=== PATIENT | female | born 1975 | race Caucasian/White ===

== ENCOUNTER 2016-12-15 08:10 | Inpatient (IN) | payer BC, OTHER ==
[~2016-12-15] VITALS: Ht 172.7 cm; Wt 79.4 kg
--- NOTE | 2016-12-15 00:02 | NUR ---
PRN Motrin and Benadryl administration Pt c/o back pain 01/17 and inability to sleep. PRN Motrin and Benadryl administered. Addendum: 12/17/16 at 0017 by MEGHAN CHANEL RN Disregard note. Incorrect entry date.
--- NOTE | 2016-12-15 01:02 | NUR ---
PRN Motrin and Benadryl reassessment PRN Motrin somewhat effective. Pt reports low back pain level decreased to 4/10. PRN Benadryl not yet effective. Pt reports feeling tired but has not been able to fall asleep. Not further medications requested at this time. Addendum: 12/17/16 at 0017 by MEGHAN CHANEL RN Disregard note. Incorrect entry date.
[2016-12-15 09:30] VITALS: BP 128/62
--- NOTE | 2016-12-15 09:30 | NUR ---
PRE-ADMISSION NOTE: Received patient in Intake. Pt very drowsy and slurring her speech. B/P 128/62 P: 81 Pulse OX: 98% T: 98.2 Patient states she weighs 175 and is 5 feet 8 inches tall. NKA UDS and urine preg obtained. Substance use history was difficult to obtain due to slurred speech: Oxycodone 30mg every 6 hrs last use today 15mg Xanax 4mg/day X 4 years. Last use today 2mg
[2016-12-15] MEDS ORDERED: ONDANSETRON 4 MG/2 ML VIAL IM PRN (09:45)
[2016-12-15] MEDS ORDERED: DICYCLOMINE HCL 20 MG TABLET PO PRN (09:45)
[2016-12-15] MEDS ORDERED: ONDANSETRON ODT 4 MG TAB.RAPDIS SL PRN (09:45)
[2016-12-15] MEDS ORDERED: THIAMINE HCL 200 MG/2 ML VIAL IM ONE (09:45)
[2016-12-15] MEDS ORDERED: LORAZEPAM 2 MG/1 ML VIAL IM PRN (09:45)
[2016-12-15] MEDS ORDERED: LOPERAMIDE HCL 2 MG CAPSULE PO PRN ×2 (09:45)
[2016-12-15] MEDS ORDERED: ACETAMINOPHEN 325 MG TABLET PO PRN (09:45)
[2016-12-15] MEDS ORDERED: IBUPROFEN 400 MG TABLET PO PRN (09:45)
[2016-12-15] MEDS ORDERED: diphenhydrAMINE 50 MG CAPSULE PO PRN (09:45)
[2016-12-15] MEDS ORDERED: LORAZEPAM 1 MG TABLET PO PRN (09:45)
[2016-12-15] MEDS ORDERED: MAG HYDROX/AL HYDROX/SIMETH 30 ML LIQUID UDC PO PRN (09:45)
[2016-12-15] MEDS ORDERED: MIRALAX 17 GM POWD.PACK PO PRN (09:45)
[2016-12-15] MEDS ORDERED: MAGNESIUM HYDROXIDE 30 ML LIQUID UDC PO PRN (09:45)
--- NOTE | 2016-12-15 10:00 | NUR ---
Pt sleeping unable to do assessment at this time.
[2016-12-15 10:04] LABS: *URINE HCG, QUAL NEGATIVE (NEGATIVE)
[2016-12-15 10:15] LABS: *AMPHETAMINE, URINE NEGATIVE (NEGATIVE); *BARBITURATE, URINE NEGATIVE (NEGATIVE); *CANNABINOID, URINE NEGATIVE (NEGATIVE); *COCCAINE, URINE NEGATIVE (NEGATIVE); *OPIATE, URINE NEGATIVE (NEGATIVE); *PHENCYCLIDINE SCREEN,URINE NEGATIVE (NEGATIVE)
[2016-12-15] MEDS ORDERED: CITA20TA19 PO (10:17)
[2016-12-15 10:57] LABS: ETHANOL < 3 MG/DL (0-0)
[2016-12-15 11:00] LABS: BASOPHILS % (AUTO) 0.3 % (0.0-2.0); EOSINOPHILS % (AUTO) 0.3 % (0.0-7.0); HEMATOCRIT 38.6 % (37-47); HEMOGLOBIN 13.1 G/DL (12.0-16.0); LYMPHOCYTES # (AUTO) 1.3 K/uL (20.0-40.0); LYMPHOCYTES % (AUTO) 25.2 % (20.5-51.5); MEAN CORPUSCULAR HEMOGLOBIN 33.7 UUG (27.0-31.0); MEAN CORPUSCULAR HGB CONC 34 g/dL (32.0-37.0); MEAN CORPUSCULAR VOLUME 99.2 FL (81.0-99.0); MONOCYTES # (AUTO) 0.3 K/uL (2.0-10.0); MONOCYTES % (AUTO) 6.1 % (0.0-11.0); NEUTROPHILS # (AUTO) 3.6 K/uL (1.8-8.9); NEUTROPHILS % (AUTO) 68.1 % (38.5-71.5); PLATELET COUNT (AUTO) 219 K/UL (150-450); RED BLOOD CELL COUNT(AUTO) 3.89 MIL/UL (4.2-5.4); RED CELL DISTRIBUTION WIDTH 13.5 % (11.5-14.5); WHITE BLOOD COUNT (AUTO) 5.2 K/UL (4.0-11.2)
[2016-12-15 11:03] LABS: ALANINE AMINOTRANSFERASE 60 U/L (14-59); ALBUMIN 4.1 g/dL (3.4-5.0); ALKALINE PHOSPHATASE 57 U/L (50-136); AMYLASE 40 U/L (25-115); ASPARTATE AMINOTRANSFERASE 62 U/L (15-37); BILIRUBIN,TOTAL 0.5 mg/dL (0.2-1.0); CALCIUM 8.8 mg/dL (8.5-10.1); CARBON DIOXIDE 31 mmol/L (21-32); CHLORIDE 103 mmol/L (98-107); CREATININE 0.7 mg/dL (0.6-1.3); GFR 93 mL/min (>60); GLUCOSE 161 mg/dL (74-106); LIPASE 217 U/L (73-393); MAGNESIUM 2.2 mg/dL (1.8-2.4); POTASSIUM 3.6 mmol/L (3.5-5.1); SODIUM SERUM 141 mmol/L (136-145); TOTAL PROTEIN, SERUM 7.7 g/dL (6.4-8.2); UREA NITROGEN, BLOOD 8 mg/dL (7-18)
[2016-12-15 11:14] LABS: THYROID STIMULATING HORMONE 0.658 mIU/mL (0.358-3.740)
[2016-12-15 11:27] LABS: HIV-1 p24 ANTIGEN NON REACTIVE (NONREACTIVE); HIV-1/2 ANTIBODY NON REACTIVE (NONREACTIVE)
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
[2016-12-15 13:07] VITALS: BP 106/61
[2016-12-15] MEDS: LORAZEPAM 1 MG TABLET PO PRN (13:29)
[2016-12-15] MEDS: BUPRENORPHINE HCL 2 MG TAB.SUBL SL PRN (13:30)
--- NOTE | 2016-12-15 13:30 | NUR ---
Pt awake and states she "feels sick" CIWA 13 COWS 12 Pt c/o severe body aches, chills, nausea fine tremors and anxiety. Ativan 1mg po prn and Subutex 4mg sl prn administered. Also c/o nausea. Zofran 4mg sl administered
--- NOTE | 2016-12-15 14:30 | NUR ---
Pt feels improved after Subutex and Ativan prn. Repeat SUSANNE 7 COWS 9 Addendum: 12/15/16 at 1614 by ROWAN GUARDADO RN Also states nausea gone after Zofran prn
[2016-12-15] MEDS: LORAZEPAM 1 MG TABLET PO SCH ×2 (16:54→21:28)
[2016-12-15] MEDS: BUPRENORPHINE HCL 2 MG TAB.SUBL SL SCH ×2 (16:54→21:28)
--- NOTE | 2016-12-15 16:58 | NUR ---
VSS CIWA 13 COWS 14 c/o chills, shaking, body aches Pt started on 5 day Ativan and 5 day Subutex tapers.
[2016-12-15 18:12] VITALS: BP 111/72
--- NOTE | 2016-12-15 18:48 | NUR ---
END OF SHIFT NOTE: Report given to weight shifter nurse. 41 yo female admitted to [facility] today for opiate and benzo dependence. Pt started on a 5 day Ativan and 5 day Subutex tapers. Pt is presently awake, alert and oriented X4. Color good, skin warm and dry. Respirations even and unlabored. Pt received Zofran 4mg sl prn @ 1345 and Ativan 2mg po prn and Subutex 4mg sl prn @ 1330 before taper started. Last CIWA 13 COWS 14 @ 1700. Safety precautions observed. Call light within reach.
--- NOTE | 2016-12-15 19:45 | NUR ---
START OF SHIFT 323 Received report from day shift nurse. Pt is lying in bed resting. She is a 41 yo female admitted to [facility] today for opiate and BZD dependence. She is A&O x4 and ambulatory. NKA, full code status, and on a regular diet. She has a PMH of anxiety and depression. On admission she admitted to using oxycodone 6 of 30mg tabs per day for 7 years and Xanax 4-6mg per day for 7 years. She started modified Ativan and Subutex tapers today. Upon entering her room the pt is tearful and appears anxious. She states that she feels ashamed that she has ended up here. Provided support and encouragement. She reports back pain, leg aches, chills, and anxiety. She is noted with a flushed face, mild tremors, and goose bumps. Tapers due tonight. Fall and seizure precautions in place.
[2016-12-15 20:00] VITALS: BP 121/64
[2016-12-15] MEDS: METHOCARBAMOL 750 MG TABLET PO PRN (21:29)
--- NOTE | 2016-12-15 21:30 | NUR ---
PRN Robaxin administration Pt c/o generalized body aches and back pain 01/17. PRN Robaxin administered.
--- NOTE | 2016-12-15 22:30 | NUR ---
PRN Robaxin reassessment PRN Robaxin effective. Pt's pain level reduced to 2/10
[2016-12-16] VITALS (8 sets, daily range): BP systolic 105–127; BP diastolic 53–69
[2016-12-16] MEDS: IBUPROFEN 600 MG TABLET PO PRN (00:01)
--- NOTE | 2016-12-16 00:02 | NUR ---
PRN Motrin and Benadryl administration Pt c/o back pain 6/10 and inability to sleep. PRN Motrin and Benadryl administered.
--- NOTE | 2016-12-16 01:02 | NUR ---
PRN Motrin and Benadryl reassessment PRN Motrin somewhat effective. Pt reports low back pain level decreased to 4/10. PRN Benadryl not yet effective. Pt reports feeling tired but has not been able to fall asleep. Not further medications requested at this time.
[2016-12-16] MEDS: LORAZEPAM 1 MG TABLET PO PRN (02:21)
[2016-12-16] MEDS: BUPRENORPHINE HCL 2 MG TAB.SUBL SL PRN (02:22)
--- NOTE | 2016-12-16 02:22 | NUR ---
PRN Subutex and Ativan administration Pt reports back pain level increased to 6/10 and she has generalized body aches with chills, flushing, anxiety, irritability, and mild hand tremors. She has not been able to relax and fall asleep. COWS score 12 and CIWA 6. PRN Subutex and Ativan administered.
--- NOTE | 2016-12-16 03:22 | NUR ---
PRN Subutex and Ativan reassessment PRN Subutex and Ativan effective. Pt is lying comfortably in bed resting with eyes closed. Respirations even and unlabored.
--- NOTE | 2016-12-16 07:15 | NUR ---
END OF SHIFT Report provided to day shift nurse. Pt is lying in bed resting. She is a 41 yo female admitted to [facility] today for opiate and BZD dependence. She is A&O x4 and ambulatory. NKA, full code status, and on a regular diet. She has a PMH of anxiety and depression. On admission she admitted to using oxycodone 6 of 30mg tabs per day for 7 years and Xanax 4-6mg per day for 7 years. She started a 5 day Ativan and Subutex taper on 12/15. Several PRNs administered for the management of withdrawal symptoms. She received PRN Robaxin, Benadryl, Motrin, Subutex, and Ativan. Last COWS 2 and CIWA 2. She drank 1000mL and slept 4 hours. Fall and seizure precautions in place. Bed is down with call light in reach.
--- NOTE | 2016-12-16 07:16 | NUR ---
Start of Shift Notes: Received patient in her room. Alert and oriented x 4. Verbally responsive. Able to make needs known. Respirations even and unlabored. No SOB noted. Skin warm and dry to touch. Abdomen soft and non-distended. Bowel sounds present in all 4 quadrants. No complains N/V/D or abdominal pain noted. No complains of diarrhea or constipation. Voids independently. Ambulatory ad wayne with steady gait. Voids independently No complains of dysuria. Patient is a 41 year female admitted for opiate and BZO dependence who was placed on a 5-day Ativan and 5-day Subutex taper as ordered. No adverse reactions noted. Has past medical hx of anxiety, depression and chronic back pain. FULL CODE. Regular diet. NKA. On fall and seizure precaution. Educated patient on her current plan of care and her medication regimen. Patient verbalized good understanding. Encouraged oral fluid intake and encouraged group participation to learn new skills to prevent relapse. Will continue to monitor closely.
[2016-12-16] MEDS ORDERED: TUBERCULIN,PURIF.PROT.DERIV. 5 TU/0.1 ML TEST ID ONE (09:00)
[2016-12-16] MEDS: MULTIVITAMINS,THERAPEUTIC TABLET PO SCH (09:06)
[2016-12-16] MEDS: LORAZEPAM 1 MG TABLET PO SCH ×4 (09:06→21:02)
[2016-12-16] MEDS: CLONIDINE HCL 0.1 MG TABLET PO PRN ×2 (09:06→23:40)
[2016-12-16] MEDS: THIAMINE HCL 100 MG TABLET PO SCH (09:06)
[2016-12-16] MEDS: BUPRENORPHINE HCL 2 MG TAB.SUBL SL SCH ×4 (09:06→21:02)
[2016-12-16] MEDS: METHOCARBAMOL 750 MG TABLET PO PRN ×2 (09:06→21:02)
[2016-12-16] MEDS: FOLIC ACID 1 MG TABLET PO SCH (09:06)
--- NOTE | 2016-12-16 09:06 | NUR ---
Clonidine 0.1mg PO/Robaxin 750mg PO given: Patient noted with complain of chills, anxiety, hot flashes, mild sweating and 5/10 generalized muscle aches related to withdrawal symptoms. COWS 8/CIWA 5. Medicated patient with Clonidine 0.1mg PO, and Robaxin 750 mg PO as ordered. Will monitor for effectiveness.
--- NOTE | 2016-12-16 10:06 | NUR ---
Re-assessment: Per patient, PRN Clonidine and Robaxin were effective in reducing anxiety, agitation, chills, muscle aches and pain. PL 2/10.
--- NOTE | 2016-12-16 11:11 | NUR ---
Psych MD Communication: Patient was using Celexa 20 mg PO at home. Order obtained from MD Roberts to start patient on Celexa 20 mg PO daily with first dose now. MD is driving and unable to enter orders at this time. +
[2016-12-16] MEDS: CITALOPRAM 20 MG TABLET PO SCH (12:07)
[2016-12-16 16:08] LABS: HCV AB <0.1 s/co ratio (0.0-0.9); HEPATITIS B CORE AB, IgM Negative (Negative); HEPATITIS B SURFACE AG Negative (Negative)
[2016-12-16] MEDS ORDERED: TRAZODONE 50 MG TABLET PO PRN (18:30)
--- NOTE | 2016-12-16 18:58 | NUR ---
End of Shift Notes: Miquel is a 41 year old female admitted for opiate and BZO dependence who was placed on a 5-day Ativan and 5-day Subutex taper as ordered. No adverse reactions noted. Prior to admission, patient was using 180 mg of Oxycodone and 4-6mg of Xanax x 7 years. VS monitored closely. No significant abnormalities noted. Withdrawal symptoms were closely monitored. Patient presented with chills, hot flashes, anxiety, agitation, chills, muscle aches and pains and pupil dilation. COWS 8/CIWA 5. Medicated patient with Clonidine and Robaxin at 0906 with help after 1 hour. Last COWS 6/CIWA 4. Participated in group despite her withdrawal symptoms. Oral fluids encouraged. All needs met and attended. Will continue to monitor closely.
--- NOTE | 2016-12-16 20:00 | NUR ---
START OF SHIFT Received report from day shift nurse. Pt attended a group meeting and returned to her room after. She is a 41 yo female admitted to [facility] on 12/15 for opiate and BZD dependence. She is A&O x4 and ambulatory. NKA, full code status, and on a regular diet. She has a PMH of anxiety and depression. On admission she admitted to using oxycodone 6 of 30mg tabs per day for 7 years and Xanax 4-6mg per day for 7 years. She started modified Ativan and Subutex tapers on 12/15. Pt presents with back pain, hot and cold flashes, flushed face, flat affect, and anxiety. Tapers due tonight. She is cooperative with treatment. Fall and seizure precautions in place. Fall and seizure precautions in place. Bed is down with call light in reach.
--- NOTE | 2016-12-16 21:05 | NUR ---
PRN Robaxin, Milk of Magnesia, and Trazodone Pt reports back ache 6/10, no BM since prior to admission, and inability to sleep. PRN Robaxin, Milk of Magnesia, and Trazodone administered.
--- NOTE | 2016-12-16 22:05 | NUR ---
JOSH Marte, MOM, and Trazodone reassessment Pt reports that back pain is "tolerable". She has not yet had a bowel movement or been able to sleep. She reports she will continue to lie in bed and try to sleep.
[2016-12-16] MEDS: HYDROXYZINE PAMOATE 25 MG CAPSULE PO PRN (23:41)
--- NOTE | 2016-12-16 23:42 | NUR ---
PRN Clonidine and Vistaril administration Pt reports hot and cold flashes, anxiety, and inability to relax and fall asleep. PRN Clonidine and Vistaril administered.
[2016-12-17] VITALS (7 sets, daily range): BP systolic 96–123; BP diastolic 59–79
--- NOTE | 2016-12-17 00:42 | NUR ---
PRN Clonidine and Vistaril reassessment PRN Clonidine and Vistaril effective. Pt is lying comfortably in bed resting with eyes closed. Respirations even and unlabored. Safety measures in place.
--- NOTE | 2016-12-17 07:20 | NUR ---
END OF SHIFT Report provided to day shift nurse. Pt is lying in bed resting. She is a 41 yo female admitted to [facility] today for opiate and BZD dependence. She is A&O x4 and ambulatory. NKA, full code status, and on a regular diet. She has a PMH of anxiety and depression. On admission she admitted to using oxycodone 6 of 30mg tabs per day for 7 years and Xanax 4-6mg per day for 7 years. She started modified Ativan and Subutex tapers on 12/15. Last COWS 2 and CIWA 2. PRN Trazodone, Robaxin, MOM, Clonidine, and Vistaril administered. She drank 1855mL and slept for 5 hours. Pt is compliant with treatment. Safety measures in place.
--- NOTE | 2016-12-17 07:33 | NUR ---
START OF SHIFT Received report from shift production associate nurse. 41 year old female patient admitted on 12/15/16 for opiate and benzo dependence. Pt is placed on a modified 5 day Subutex and Ativan taper and is tolerating well. Reports hx of anxiety, depression, and chronic back pain. PRN Trazodone, Robaxin, Motrin, Clonidine and Vistaril were administered, pt slept for 5 hours. Pt is A/O x4 and compliant with MD orders and treatment plan. S/S of withdrawal are being well managed with ordered medications. V/S remain WNL. Most recent COWS are 2, CIWA is 2. Pt remains safe and stable throughout night. All needs met. Will continue to monitor.
[2016-12-17 08:00] LABS: BASOPHILS % (AUTO) 0.2 % (0.0-2.0); EOSINOPHILS # (AUTO) 0.1 K/uL (0.0-0.7); EOSINOPHILS % (AUTO) 1.4 % (0.0-7.0); HEMATOCRIT 37.4 % (37-47); HEMOGLOBIN 12.8 G/DL (12.0-16.0); LYMPHOCYTES # (AUTO) 2.1 K/UL (0.8-4.8); LYMPHOCYTES % (AUTO) 48.3 % (20.5-51.5); MEAN CORPUSCULAR HEMOGLOBIN 34.1 UUG (27.0-31.0); MEAN CORPUSCULAR HGB CONC 34 g/dL (32.0-37.0); MEAN CORPUSCULAR VOLUME 99.8 FL (81.0-99.0); MONOCYTES # (AUTO) 0.3 K/UL (0.1-1.30); MONOCYTES % (AUTO) 6.6 % (0.0-11.0); NEUTROPHILS # (AUTO) 1.9 K/UL (1.8-8.9); NEUTROPHILS % (AUTO) 43.5 % (38.5-71.5); PLATELET COUNT (AUTO) 180 K/UL (150-450); RED BLOOD CELL COUNT(AUTO) 3.75 MIL/UL (4.2-5.4); RED CELL DISTRIBUTION WIDTH 13.1 % (11.5-14.5); WHITE BLOOD COUNT (AUTO) 4.4 K/UL (4.0-11.2)
[2016-12-17 08:17] LABS: ALBUMIN 3.4 g/dL (3.4-5.0); BILIRUBIN,DIRECT 0.1 mg/dL (0.0-0.2); BILIRUBIN,TOTAL 0.2 mg/dL (0.2-1.0); CALCIUM 8.3 mg/dL (8.5-10.1); CREATININE 0.7 mg/dL (0.6-1.3); MAGNESIUM 2.5 mg/dL (1.8-2.4); POTASSIUM 4.4 mmol/L (3.5-5.1); TOTAL PROTEIN, SERUM 6.7 g/dL (6.4-8.2)
[2016-12-17] MEDS: CITALOPRAM 20 MG TABLET PO SCH (08:23)
[2016-12-17] MEDS: METHOCARBAMOL 750 MG TABLET PO PRN ×2 (08:23→20:44)
[2016-12-17] MEDS: THIAMINE HCL 100 MG TABLET PO SCH (08:23)
[2016-12-17] MEDS: FOLIC ACID 1 MG TABLET PO SCH (08:23)
[2016-12-17] MEDS: LORAZEPAM 1 MG TABLET PO SCH ×3 (08:23→20:45)
[2016-12-17] MEDS: BUPRENORPHINE HCL 2 MG TAB.SUBL SL SCH ×3 (08:24→20:43)
[2016-12-17] MEDS: MULTIVITAMINS,THERAPEUTIC TABLET PO SCH (08:24)
--- NOTE | 2016-12-17 08:25 | NUR ---
PRN ROBAXIN Pt c/o generalized body aches 5/10 r/t withdrawals. PRN Robaxin administered as ordered. Education provided, will reassess.
--- NOTE | 2016-12-17 09:30 | NUR ---
REASSESSMENT Pt denies pain at this time and reports medication was effective.
[2016-12-17] MEDS: DICYCLOMINE HCL 20 MG TABLET PO SCH ×2 (15:00→20:44)
--- NOTE | 2016-12-17 19:22 | NUR ---
END OF SHIFT Endorsed to bindery manager nurse. 41 year old female patient admitted on 12/15/16 for opiate and benzo dependence. Pt is placed on a modified 5 day Subutex and Ativan taper and is tolerating well. Reports hx of anxiety, depression, and chronic back pain. PRN Robaxin administered as ordered and effective. Pt is A/O x4 and compliant with MD orders and treatment plan. S/S of withdrawal are being well managed with ordered medications. Pt reports having a BM x1. Pt has adequate caloric intake. V/S remain WNL. Most recent COWS are 6 CIWA is 6. Pt remains safe and stable throughout night. All needs met. Pt encouraged to attend group and is seen socializing with peers. Night nurse will continue to monitor.
--- NOTE | 2016-12-17 20:00 | NUR ---
Start of Shift Note: Report received from day shift nurse. Pt is a 41 yo female admitted om 12/15/16 for medically-supervised withdrawal from opiates and benzodiazepines. Pt reports using 30mg oxycodone and 4-6mg Xanax daily for 7 years. Pt is on day 3 of a 5-day Subutex and Ativan tapers. Pt received with last COWS=6, CIWA=6, and PRN Robaxin was given during day shift. Pt reports NKDA/NKFA and is on a regular diet. Pt reports PMHx: anxiety, depression, and chronic back pain. Pt received in room, noted to be labile, and reports anxiety, diaphoresis, chills, and generalized pain. Bed is in low position and locked, side rails up x2, call light within reach. Will continue to monitor.
[2016-12-17] MEDS: TRAZODONE 50 MG TABLET PO PRN (20:44)
--- NOTE | 2016-12-17 20:44 | NUR ---
PRN Robaxin and PRN Trazodone: Patient complains of myalgia in lower back. Patient rates pain 5/10. Non-pharmacological measures not effective. Administered PRN Robaxin as ordered. Patient complains of inability to sleep. Non-pharmacological measures not effective. Administered PRN Trazodone as ordered. Will continue to monitor.
--- NOTE | 2016-12-17 21:45 | NUR ---
PRN Reassessment: Patient reports decreased myalgia in back with PRN Robaxin administration. Pain decreased from 5/10 to 2/10 and is at an acceptable level.
[2016-12-18] VITALS: BP 115/59
[2016-12-18 04:00] VITALS: BP 98/53
--- NOTE | 2016-12-18 04:00 | NUR ---
COWS/CIWA Deferred: Ordered 04:00 COWS and CIWA assessments are deferred for sleep. V/S stable. All safety precautions are in place. Will continue to monitor. Addendum: 12/18/16 at 0414 by TONIA JAMESON RN Amended: Links added.
--- NOTE | 2016-12-18 07:04 | NUR ---
End of Shift Note: Pt is a 41 yo female admitted to [facility] on 12/15/16 for medically-supervised withdrawal from opiates and benzodiazepines. Pt reports PMHx: anxiety, depression, and chronic back pain. . Pt reports NKDA/NKFA. Pt is on a regular diet. Pt reports taking up to 180mg oxycodone and 4-6mg Xanax daily for 7 years. Pt is to start day 4 of 5-day Subutex and Ativan tapers. Scheduled medication regime effectively managed s/s of withdrawal this shift, in addition to PRN Robaxin for myalgia, which was effective. Last COWS=4, CIWA=4 at 00:00. PRN Trazodone was given for inability to sleep, which was effective and pt slept 7 hours. V/S stable throughout shift, with decreased BP of 98/53 at 04:00. Total fluid intake this shift: 950 ml; output: urine x 2 and BM x 0. Pt is currently in bed, all needs have been attended and met. Pt endorsed to day shift nurse.
[2016-12-18 08:00] VITALS: BP 102/58
[2016-12-18] MEDS: LORAZEPAM 1 MG TABLET PO SCH ×4 (08:55→21:09)
[2016-12-18] MEDS: MULTIVITAMINS,THERAPEUTIC TABLET PO SCH (08:55)
[2016-12-18] MEDS: FOLIC ACID 1 MG TABLET PO SCH (08:55)
[2016-12-18] MEDS: THIAMINE HCL 100 MG TABLET PO SCH (08:55)
[2016-12-18] MEDS: DICYCLOMINE HCL 20 MG TABLET PO SCH ×3 (08:55→21:08)
[2016-12-18] MEDS: CITALOPRAM 20 MG TABLET PO SCH (08:55)
[2016-12-18] MEDS ORDERED: BUPRENORPHINE HCL 2 MG TAB.SUBL SL SCH (09:00)
[2016-12-18 12:00] VITALS: BP 96/62
[2016-12-18] MEDS: DOCUSATE SODIUM 250 MG CAPSULE PO SCH (12:35)
[2016-12-18] MEDS ORDERED: BISACODYL 5 MG TABLET.DR PO PRN (13:00)
[2016-12-18] MEDS ORDERED: MAGNESIUM CITRATE 296 ML BOTTLE PO PRN (13:00)
--- NOTE | 2016-12-18 14:00 | NUR ---
Mid Shift Notes: COWS 3/CIWA 3. Patient is in bed, resting. In no acute distress.
[2016-12-18] MEDS: GABAPENTIN 300 MG CAPSULE PO SCH ×2 (14:43→21:09)
[2016-12-18] MEDS: BUPRENORPHINE HCL 2 MG TAB.SUBL SL SCH ×2 (14:43→21:10)
[2016-12-18 16:00] VITALS: BP 94/50
--- NOTE | 2016-12-18 18:50 | NUR ---
End of Shift Notes: Patient is a 41 year old female admitted for opiate and BZO dependence who was placed on a 5-day Ativan and 5-day Subutex taper as ordered. No adverse reactions noted. Prior to admission, patient was using 180 mg of Oxycodone and 4-6mg of Xanax x 7 years. VS monitored closely. No significant abnormalities noted. Withdrawal symptoms were closely monitored. Patient presented with fatigue, anxiety, chills and muscle aches. Initial COWS 5/CIWA 3. Last COWS 3/CIWA 2. Patient was unable to participate in group due to her withdrawal symptoms and complains of fatigue. Oral fluids encouraged. All needs met and attended. Will continue to monitor closely.
[2016-12-18 20:00] VITALS: BP 118/66
--- NOTE | 2016-12-18 20:00 | NUR ---
Start of Shift Note: Report received from day shift nurse. Pt is a 41 yo female admitted for medically-supervised withdrawal from opiates and benzodiazepines. Pt reports using 30mg oxycodone and 4-6mg Xanax daily for 7 years. Pt is on day 4 of a 5-day Subutex and Ativan tapers. Pt received with last COWS=3, CIWA=2. Pt reports NKDA/NKFA. Pt is on a regular diet. Pt reports PMHx: anxiety, depression, and chronic back pain. Pt received in room, and reports anxiety, agitation, restlessness, tremor, and generalized pain. Bed is in low position and locked, side rails up x2, call light within reach. Will continue to monitor.
[2016-12-18] MEDS: HYDROXYZINE PAMOATE 25 MG CAPSULE PO PRN (21:08)
[2016-12-18] MEDS: TRAZODONE 50 MG TABLET PO PRN (21:08)
[2016-12-18] MEDS: CLONIDINE HCL 0.1 MG TABLET PO PRN (21:09)
--- NOTE | 2016-12-18 21:09 | NUR ---
PRN's Clonidine, Trazodone, Robaxin, Vistaril: Patient complains of anxiety, agitation, diaphoresis, myalgia in lower back with 5/10 pain, and inability to sleep. Administered PRN Clonidine for anxiety/agitation/diaphoresis, PRN Vistaril for anxiety, PRN Robaxin for myalgia, and PRN Trazodone for inability to sleep as ordered. Will continue to monitor.
[2016-12-18] MEDS: METHOCARBAMOL 750 MG TABLET PO PRN (21:10)
--- NOTE | 2016-12-18 22:10 | NUR ---
PRN Reassessment: Patient is in bed with eyes closed. Respirations are even and unlabored. No s/s of acute distress noted. PRN's Clonidine, Vistaril, Robaxin, and Trazodone effective as evidenced by patient's ability to rest. Will continue to monitor.
[2016-12-19] VITALS: BP 93/46
[2016-12-19] MEDS: HYDROXYZINE PAMOATE 25 MG CAPSULE PO PRN ×2 (03:39→22:09)
--- NOTE | 2016-12-19 03:39 | NUR ---
PRN Vistaril: Patient complains of increased anxiety. Administered PRN Vistaril as ordered. Will continue to monitor.
[2016-12-19 04:00] VITALS: BP 99/55
--- NOTE | 2016-12-19 04:40 | NUR ---
PRN Reassessment: Patient is in bed with eyes closed. Respirations are even and unlabored. No s/s of acute distress noted. PRN Vistaril effective. Will continue to monitor.
--- NOTE | 2016-12-19 07:18 | NUR ---
End of Shift Note: Pt is a 41 yo female admitted on 12/15/16 for medically-supervised withdrawal from benzodiazepines and opiates. Pt reports PMHx: chronic back pain from injury and scoliosis, anxiety, and depression. Pt reports NKDA/NKFA and is on a regular diet. Pt reports taking up to 180mg oxycodone and 4-6mg Xanax daily for 7 years. Pt is to start day 5 of 5-day Subutex and Ativan tapers. Scheduled medication regime managed s/s of withdrawal this shift, in addition to PRN Robaxin for myalgia, PRN Clonidine for diaphoresis/anxiety, and PRN Vistaril x2 for anxiety. Last COWS=6, CIWA=4 at 04:00. PRN Trazodone was given for inability to sleep, which was not effective as pt slept only 4 hours; endorsed new sleeping medication to day shift nurse. V/S stable throughout shift, with decreased BP of 99/55 at 04:00 and elevated HR of 104 at 20:00. Total fluid intake this shift: 1155 ml; output: urine x 2 and BM x 0. Pt is currently in bed, all needs have been attended and met. Pt endorsed to day shift nurse.
[2016-12-19 08:00] VITALS: BP 100/68
[2016-12-19] MEDS: FOLIC ACID 1 MG TABLET PO SCH (08:26)
[2016-12-19] MEDS: DICYCLOMINE HCL 20 MG TABLET PO SCH ×3 (08:26→22:09)
[2016-12-19] MEDS: DOCUSATE SODIUM 250 MG CAPSULE PO SCH (08:26)
[2016-12-19] MEDS: BUPRENORPHINE HCL 2 MG TAB.SUBL SL SCH ×3 (08:26→22:10)
[2016-12-19] MEDS: MULTIVITAMINS,THERAPEUTIC TABLET PO SCH (08:26)
[2016-12-19] MEDS: THIAMINE HCL 100 MG TABLET PO SCH (08:26)
[2016-12-19] MEDS: LORAZEPAM 1 MG TABLET PO SCH ×3 (08:26→22:09)
[2016-12-19] MEDS: GABAPENTIN 300 MG CAPSULE PO SCH ×2 (08:26→14:37)
[2016-12-19] MEDS: CITALOPRAM 20 MG TABLET PO SCH (08:27)
--- NOTE | 2016-12-19 12:49 | NUR ---
Transfer of care: Endorsed patient to receiving nurse. Patient is a 41 year old female admitted for opiate and BZO dependence who was placed on a 5-day Ativan and 5-day Subutex taper as ordered. No adverse reactions noted. Prior to admission, patient was using 180 mg of Oxycodone and 4-6mg of Xanax x 7 years. VS monitored closely. No significant abnormalities noted. Withdrawal symptoms were closely monitored. Patient presented with fatigue, and muscle aches. Initial COWS 2/CIWA 2. Last COWS 2/CIWA 2. Patient was unable to participate in group due to and complains of fatigue. Oral fluids encouraged. All needs met and attended. Will continue to monitor closely.
--- NOTE | 2016-12-19 12:50 | NUR ---
received pt from day shift nurse Elena Kim, pt is in stable condition at this time.
[2016-12-19 14:06] VITALS: BP 118/63
[2016-12-19] MEDS: METHOCARBAMOL 750 MG TABLET PO PRN (14:37)
--- NOTE | 2016-12-19 14:37 | NUR ---
PRN robaxin was administered for back pain. 03/19. will re-assess pt for any changes and effectiveness of medication
--- NOTE | 2016-12-19 15:00 | NUR ---
PRN REASSESSMENT: PT STATES ROBAXIN IS EFFECTIVE, PAIN LEVEL 3/10. PT STATES PAIN IS BETTER BUT PAIN WILL ALWAYS BE THERE. IT IS TOLERABLE AT THIS TIME
[2016-12-19 17:37] VITALS: BP 106/68
--- NOTE | 2016-12-19 18:51 | NUR ---
END OF SHIFT NOTE: PT IS IN STABLE CONDITION AT THIS TIME NO S/S OF DISCOMFORT, PT HAS CHRONIC PAIN, BUT VERBALIZES IT IS TOLERABLE AT THIS TIME. PT IS ADMITTED TO [facility] FOR OPIATE/BENZO WITHDRAWAL/DEPENDENCE. PTS LAST COWS 8 AND CIWA 6. PT JOINED GROUPS AND ACTIVITIES THROUGHOUT THE SHIFT.
[2016-12-19 20:00] VITALS: BP 100/64
--- NOTE | 2016-12-19 20:00 | NUR ---
Start of Shift Note: Report received from day shift nurse. Pt is a 41 yo female admitted for medically-supervised withdrawal from opiates and benzos. Pt reports using oxycodone 30mg/day and Xanax 4-6mg/day for 7 years. Pt continues on 5-day Subutex and Ativan tapers, three doses each remaining. Pt received with last COWS=2, CIWA=2, and PRN Robaxin was given during day shift. Pt reports NKDA/NKFA and is on a regular diet. Pt reports PMHx: anxiety, depression, and chronic back pain d/t injury and scoliosis. Pt received in room, and reports anxiety, restlessness, tremor. Bed is in low position and locked, side rails up x2, call light within reach. Will continue to monitor.
--- NOTE | 2016-12-19 20:00 | NUR ---
21:00 Meds Late: 21:00 scheduled medications administered late d/t patient attending comedy show and then off the unit on smoking patio. Medications administered at 22:10.
[2016-12-19] MEDS ORDERED: GABAPENTIN 300 MG CAPSULE PO SCH (21:00)
[2016-12-19] MEDS: CLONIDINE HCL 0.1 MG TABLET PO PRN (22:10)
[2016-12-19] MEDS: TRAZODONE 50 MG TABLET PO PRN (22:10)
--- NOTE | 2016-12-19 22:10 | NUR ---
PRN Clonidine, PRN Vistaril, and PRN Trazodone Patient complains of diaphoresis, anxiety, and inability to sleep. Non-pharmacological measures not effective. Administered PRN Clonidine, PRN Vistaril, and PRN Trazodone as ordered. Will continue to monitor.
--- NOTE | 2016-12-19 23:10 | NUR ---
PRN Reassessment: Patient is in bed with eyes closed. Respirations are even and unlabored. No s/s of acute distress noted. PRN's Vistaril, Clonidine, and Trazodone effective. Will continue to monitor. Addendum: 12/20/16 at 0709 by TONIA JAMESON RN Pt reports that she was laying in bed but was not sleeping. PRN Trazodone was NOT effective.
[2016-12-20] VITALS: BP 95/50
--- NOTE | 2016-12-20 | NUR ---
COWS and CIWA Deferred: Ordered 00:00 COWS and CIWA Q4HWA assessments are deferred for sleep. V/S stable. All safety precautions are in place. Will continue to monitor. Addendum: 12/20/16 at 0241 by TONIA JAMESON RN Amended: Links added.
[2016-12-20 04:00] VITALS: BP 95/47
--- NOTE | 2016-12-20 04:00 | NUR ---
COWS/CIWA Deferred: COWS and CIWA assessments are deferred for sleep. V/S stable. All safety precautions are in place. Will continue to monitor. Addendum: 12/20/16 at 0439 by TONIA JAMESON RN Amended: Links added.
--- NOTE | 2016-12-20 07:08 | NUR ---
End of Shift Note: Pt is a 41 yo female admitted for medically-supervised withdrawal from benzodiazepines and opiates. Pt reports PMHx: chronic back pain from injury and scoliosis, anxiety, and depression. Pt reports NKDA/NKFA and is on a regular diet. Pt reports taking up to 180mg oxycodone and 4-6mg Xanax daily for 7 years. Pt has two remaining doses of 5-day Subutex and Ativan tapers. Scheduled medication regime managed s/s of withdrawal this shift, in addition to PRN Clonidine for diaphoresis/anxiety, and PRN Vistaril for anxiety. Last COWS=4, CIWA=4 at 20:00. PRN Trazodone was given for inability to sleep, which was not effective as pt slept only 1 hour; endorsed new sleeping medication to day shift nurse. V/S stable throughout shift, with decreased BP of 95/50 at 00:00 and 95/47 at 04:00; and elevated HR of 97 at 20:00. Total fluid intake this shift: 1600 ml; output: urine x 4 and BM x 0. Pt is currently in bed, all needs have been attended and met. Pt endorsed to day shift nurse.
--- NOTE | 2016-12-20 07:30 | NUR ---
start of shift note: received pt from date night caregiver nurse, pt was not able to have adequate amount of sleep, will f/u with MD for any new orders. pt is is admitted to [facility] for opiate/benzo withdrawal/dependence. pt tolerating taper medications well, no a/r reaction noted. pts lst cows 4 and last ciwa 4. will continue to monitor pt for any changes
[2016-12-20] MEDS: LORAZEPAM 1 MG TABLET PO SCH ×2 (08:37→20:25)
[2016-12-20] MEDS: DICYCLOMINE HCL 20 MG TABLET PO SCH ×3 (08:37→20:25)
[2016-12-20] MEDS: GABAPENTIN 300 MG CAPSULE PO SCH ×3 (08:38→20:25)
[2016-12-20] MEDS: CITALOPRAM 20 MG TABLET PO SCH (08:38)
[2016-12-20] MEDS: MULTIVITAMINS,THERAPEUTIC TABLET PO SCH (08:38)
[2016-12-20] MEDS: FOLIC ACID 1 MG TABLET PO SCH (08:38)
[2016-12-20] MEDS: BUPRENORPHINE HCL 2 MG TAB.SUBL SL SCH ×2 (08:39→20:26)
[2016-12-20] MEDS: THIAMINE HCL 100 MG TABLET PO SCH (08:39)
[2016-12-20] MEDS: DOCUSATE SODIUM 250 MG CAPSULE PO SCH (08:39)
[2016-12-20 09:00] VITALS: BP 101/58
[2016-12-20 13:29] VITALS: BP 97/60
[2016-12-20 18:44] VITALS: BP 90/68
[2016-12-20 19:09] LABS: *BENZODIAZEPINES Negative (Cutoff=300)
--- NOTE | 2016-12-20 19:23 | NUR ---
END OF SHIFT NOTE: PT IS IN STABLE CONDITION AT THIS TIME NO S/S OF PAIN OR DISCOMFORT. PT IS ADMITTED TO [facility] FOR OPIATE/BENZO WITHDRAWAL/DEPENDENCE. PT HAS TOLERATED HER TAPER MEDICATIONS WITHOUT A/R NOTED. PTS LAST CIWA 2 AND LAST COWS 2. WILL ENDORSE PT TO ARMED SECURITY GUARD NURSE.
[2016-12-20 20:00] VITALS: BP_SYST 111; BP_SYST 97; BP_DIAS 67; BP_DIAS 70
--- NOTE | 2016-12-20 20:00 | NUR ---
START OF SHIFT NOTE PATIENT IN ROOM. ALERT AND ORIENTED X 4. RESPIRATION EVEN AND UNLABORED. PATIENT REPORTS SWEATING, BACK PAIN BUT TOLERABLE. NO N/V, NO ABDOMINAL CRAMPING, STUFFY NOSE, AND ANXIOUS. PATIENT VERBALIZES DIFFICULTY STAYING ASLEEP LAST NIGHT. RECEIVED REPORT FROM DAY SHIFT NURSE. PATIENT IS A 41 YEAR OLD FEMALE ADMITTED FOR OPIATE/BENZO DEPENDENCE. PATIENT IS ON 5TH DAY OF HER 5 DAY ATIVAN AND 5 DAY SUBUTEX TAPER. PATIENT REPORTS PMH OF ANXIETY, DEPRESSION AND CHRONIC PAIN D/T SCOLIOSIS AND BULGING DISKS. PATIENT IS ON FALL/SEIZURE PRECAUTION. PATIENT DID NOT REQUIRE ANY PRN MEDICATION DURING THE DAY. LAST COWS 2 AND CIWA 2. SAFETY MEASURES IN PLACE. CALL LIGHT IN REACH. WILL CONTINUE TO MONITOR.
[2016-12-20] MEDS: QUETIAPINE FUMARATE 25 MG TABLET PO SCH (20:25)
--- NOTE | 2016-12-20 22:29 | NUR ---
PRN VISTARIL ADMINISTRATION PATIENT C/O ANXIOUS AND STILL UNABLE TO SLEEP. PRN VISTARIL GIVEN. WILL MONITOR FOR EFFECTIVENESS.
--- NOTE | 2016-12-20 23:29 | NUR ---
PRN VISTARIL RE-ASSESSMENT PATIENT STATES VISTARIL SLIGHTLY EFFECTIVE. CONTINUE TO REDIRECT PATIENT AND STATES SHE WILL TRY TO GO BACK TO SLEEP. WILL CONTINUE TO MONITOR
[2016-12-20] MEDS: HYDROXYZINE PAMOATE 25 MG CAPSULE PO PRN (23:39)
[2016-12-21] VITALS (7 sets, daily range): BP systolic 99–146; BP diastolic 55–81
--- NOTE | 2016-12-21 07:37 | NUR ---
END OF SHIFT NOTE MONITORED PATIENT THROUGHOUT THE NIGHT. PATIENT HAD DIFFICULTY FALLING ASLEEP. PATIENT VERBALIZES HAVING NIGHTMARES. REDIRECTION PROVIDED. POSITIVE ENCOURAGEMENT AND RELAXATION TECHNIQUE PROVIDED. PRN VISTARIL GIVEN AT 0321 . PATIENT REPORTED SWEATING, BACK PAIN BUT TOLERABLE. NO N/V, NO ABDOMINAL CRAMPING, STUFFY NOSE, AND ANXIOUS DURING SHIFT. YEAR OLD FEMALE ADMITTED FOR OPIATE/BENZO DEPENDENCE. PATIENT CONTINUE ON HER 5 DAY ATIVAN AND 5 DAY SUBUTEX TAPER. PATIENT IS ON FALL/SEIZURE PRECAUTION. WILL ENDORSE TO DAY SHIFT NURSE FOR PSYCHIATRIC EVALUATION. SAFETY MEASURES IN PLACE. CALL LIGHT IN REACH. WILL CONTINUE TO MONITOR. SLEPT 0 HOURS. FLUID INTAKE OF 2,386 ML. VOIDED X 1. NO BM. LAST COWS 3 AND CIWA 3.
--- NOTE | 2016-12-21 07:50 | NUR ---
BEGINNING OF SHIFT Patient endorsement report received from warehouse worker 2nd shift nurse, all pertinent information discussed. patient with admitting Dx: Opiate/BZO dependence Patient admitted on the: 12/15/2016. PMH:anxiety, depression, and chronic back pain d/t scoliosis, and bulging discs. Patient completed 5 day ativan taper, and 5 day subutex taper as ordered, well tolerated, no ASE noted, and is currently under close observation. As per warehouse worker 2nd shift patient slept for 0 hours, received PRN: vistaril during warehouse worker 2nd shift. Patient with last ciwa score of: 3 and last cow score of: 3. Patient received awake, alert and oriented x4, educated patient regarding plan of care for the day and medication regimen with good verbal understanding. safety measures in place. will continue to monitor.
--- NOTE | 2016-12-21 08:15 | NUR ---
CHANGE OF CONDITION Patient was noted in room, digging out her trash can and moving room furniture around, patient was approached in calm and friendly manner, per patient reports she is looking for a possum in her room, patient reports she felt it when she was laying in bed and it bite her finger. Patient provided with calming reassurance and reality orientation, will notify Dr. erwin of patients auditory and visual hallucinations. will continue to monitor, safety measures in place.
--- NOTE | 2016-12-21 08:40 | NUR ---
PRN CLONIDINE Patient administered clonidine 0.1mg Po for increase in anxiety and agitation patient also noted tearful, still noted with auditory and visual hallucinations.
[2016-12-21] MEDS: CITALOPRAM 20 MG TABLET PO SCH (08:41)
[2016-12-21] MEDS: CLONIDINE HCL 0.1 MG TABLET PO PRN (08:41)
[2016-12-21] MEDS: DICYCLOMINE HCL 20 MG TABLET PO SCH ×3 (08:42→20:08)
[2016-12-21] MEDS: FOLIC ACID 1 MG TABLET PO SCH (08:42)
[2016-12-21] MEDS: GABAPENTIN 300 MG CAPSULE PO SCH ×3 (08:42→20:07)
[2016-12-21] MEDS: DOCUSATE SODIUM 250 MG CAPSULE PO SCH (08:42)
[2016-12-21] MEDS ORDERED: QUETIAPINE FUMARATE 100 MG TABLET PO ONE (08:45)
[2016-12-21] MEDS ORDERED: BUPRENORPHINE HCL 2 MG TAB.SUBL SL SCH (09:00)
[2016-12-21] MEDS: MULTIVITAMINS,THERAPEUTIC TABLET PO SCH (09:00)
[2016-12-21] MEDS: THIAMINE HCL 100 MG TABLET PO SCH (09:00)
--- NOTE | 2016-12-21 09:00 | NUR ---
COMMUNICATION/one time seroquel Per Dr. Roberts patient to receive a one time dose of Seroquel 100mg times one now, unable to input orders at this time, orders were read back and verified by RN and input into [facility], medication was adminstered at 0845 as ordered, safety measures in place. Dr. ramirez aware of patients auditory and visual hallucinations.
--- NOTE | 2016-12-21 09:40 | NUR ---
CLONIDINE REASSESSMENT Medication somewhat effective patient noted in bed, but still noted tearful. decrease in episodes of auditory and visual hallucinations. Encouraged increase in PO fluid intake as tolerated, will continue to monitor closely.
[2016-12-21] MEDS ORDERED: LORAZEPAM 1 MG TABLET PO ONE (11:30)
--- NOTE | 2016-12-21 11:42 | NUR ---
ONE TIME DOSE OF ATIVAN Patient was administered one time dose of Ativan 2 mg Po as ordered by Dr. ramirez for auditory and visual hallucinations with increase in anxiety and restlessness. still noted with auditory and visual hallucinations, safety measures in place, will continue to monitor.
[2016-12-21] MEDS: LORAZEPAM 1 MG TABLET PO SCH ×2 (14:47→20:07)
[2016-12-21] MEDS: QUETIAPINE FUMARATE 25 MG TABLET PO PRN ×2 (14:48→21:24)
--- NOTE | 2016-12-21 14:48 | NUR ---
PRN SEROQUEL Patient continues with episodes of auditory and visual hallucinations, as per Dr. Roberts patient to be PRN Seroquel 25mg Po as ordered. Medication administered as ordered. will continue to monitor closely.
--- NOTE | 2016-12-21 15:58 | NUR ---
SEROQUEL REASSESSMENT Medication effective patient in room with eyes closed respirations are even and unlabored. will continue to monitor. safety measures in place.
--- NOTE | 2016-12-21 18:50 | NUR ---
END OF SHIFT Patient alert and oriented x4, vital signs stable during shift. Patient had completed Subutex and Ativan taper, with last dose of Subutex administered this morning. Patient continues under close observation during shift was administered a one time dose of Seroquel 100mg Po at 0845 and one time dose of Ativan 2mg Po at 1142. Patient continued to have auditory and visual hallucinations on/off during shift, with episodes of hearing and seeing things that are not there. Patient reports at times see and hears her boyfriend, or a possum in room. Patient under close observation and provided frequently with reality orientation and calming reassurance. Patient was seen by Dr. Roberts and Dr. thomas during shift. Patient will not be discharged tomorrow, will continue under close observation. Ativan taper extended as per Dr. Thomas. Patient to continue on Ativan for additional two days and on third day to notify Md if ciwa greater than 8. 0900 assessment patient presented with: : heart rate of 81, tremors that can be felt, irritable,e increase anxiety and serve auditory and visual hallucinations with cow score of: 4 and ciwa score of: 13; 1300 assessment patient presented with:heart rate of 94, tremors that can be felt, irritable,e increase anxiety and serve auditory and visual hallucinations with cow score of: 4 and ciwa score of: 13. 1700 assessment patient presented with:heart rate of: 88, tremors that can be felt but not seen, irritable, anxiety, moderate auditory and visual hallucination with cow score of: 4 and ciwa score of: 13. Patient was administered PRN:clonidine 0.1mg Po during shift at 0841 during shift, and Seroquel 25mg Po at 1448, medication was effective. Patient encouraged adequate PO fluid intake as tolerated.Safety measures in place. call light kept with in reach. all needs met and rendered. patient endorsed to night club manager nurse, all pertinent information discussed.
--- NOTE | 2016-12-21 20:00 | NUR ---
START OF SHIFT NOTE RECEIVED REPORT FROM DAY SHIFT NURSE. PATIENT IS A 41 YEAR OLD FEMALE, ADMITTED FOR OPIATE/BENZO DEPENDENCE. PATIENT COMPLETED 5 DAY ATIVAN AND 5 DAY SUBUTEX TAPER. PATIENT WAS NOTED WITH AUDITORY AND VISUAL HALLUCINATION DURING THE DAY. DR. SIMONA RING AND DR. RODRIGUEZ. PATIENT WAS GIVEN PRN CLONIDINE , ONE TIME DOSE OF ATIVAN AND PRN SEROQUEL. PATIENT'S ATIVAN TAPER WAS RE-STARTED FOR 3 DAYS. PATIENT WAS PUT ON 1:1 FOR SAFETY. PATIENT IN HER ROOM. PATIENT NOTED ANXIOUS, RESTLESS, TREMORS , NOTED WITH VISUAL AND AUDITORY HALLUCINATIONS, CONTINUE TO REDIRECT AND REALITY ORIENTATION PROVIDED . SAFETY MEASURES IN PLACE. CALL LIGHT IN REACH. WILL CONTINUE TO MONITOR.
[2016-12-21] MEDS: QUETIAPINE FUMARATE 25 MG TABLET PO SCH (20:08)
[2016-12-21] MEDS ORDERED: QUETIAPINE FUMARATE 100 MG TABLET PO SCH (21:00)
[2016-12-21] MEDS: HYDROXYZINE PAMOATE 25 MG CAPSULE PO PRN (21:24)
--- NOTE | 2016-12-21 21:24 | NUR ---
PRN SEROQUEL /VISTARIL ADMINISTRATION PATIENT NOTED ANXIOUS, RESTLESS, PACING INSIDE ROOM, WITH EPISODE OF VISUAL AND AUDITORY HALLUCINATION. PRN SEROQUEL AND VISTARIL GIVEN. WILL MONITOR FOR EFFECTIVENESS
--- NOTE | 2016-12-21 22:05 | NUR ---
PRN SEROQUEL/VISTARIL RE-ASSESSMENT PATIENT STILL RESTLESS , ANXIOUS , SEROQUEL/VISTARIL INEFFECTIVE. DR. JARVIS NOTIFIED
--- NOTE | 2016-12-21 22:05 | NUR ---
RN note Seroquel adjustment Pt noted to be restless and with increasing hallucinations. Contacted Dr. Roberts and ordered dose of Seroquel to be increased to 100 mg PO HS, starting now and PRN Seroquel increased to 50 mg PO Q4H. Trasncribed in [employer]
[2016-12-21] MEDS ORDERED: QUETIAPINE FUMARATE 25 MG TABLET PO PRN (22:30)
[2016-12-21] MEDS ORDERED: QUETIAPINE FUMARATE 100 MG TABLET ONE (22:42)
--- NOTE | 2016-12-21 23:20 | NUR ---
RN note one-time Zyprexa Pt noted to be more restless, with increasing anxiety and bouts of screaming. Contacted Dr. Roberts and ordered one-time dose of Zyprexa 10 mg IM. Transcribed in [employer]. Addendum: 12/22/16 at 0046 by JA CRONIN RN Additional information: Patient trying to hit staff with her hallucinations. Dr. Roberts made aware.
[2016-12-21] MEDS ORDERED: OLANZAPINE 10 MG VIAL IM ONE (23:30)
--- NOTE | 2016-12-21 23:36 | NUR ---
Zyprexa IM Administered Zyprexa 10 mg IM as ordered. No bleeding noted.
[2016-12-22] VITALS: BP 128/89
[2016-12-22] MEDS ORDERED: OLANZAPINE 10 MG VIAL IM ONE (00:15)
--- NOTE | 2016-12-22 00:15 | NUR ---
RN note one-time Zyprexa Pt still noted to be escalating, restless and anxious. Pt trying to stand on the chair and bed. Dr. Alejandra brothers and MD ordered another dose of Zyprexa 10 mg IM. Medication administered. No bleeding noted. Vital signs are stable: MD=931/78, Pule=74, O2 sat at 97% on RA.
--- NOTE | 2016-12-22 00:24 | NUR ---
RN note Benadryl Dr. Roberts ordered Benadryl 50 mg PO QHS. Transcribed in [facility].
--- NOTE | 2016-12-22 00:29 | NUR ---
RN note Benadryl administered Benadryl 50 mg PO administered as ordered.
[2016-12-22] MEDS ORDERED: diphenhydrAMINE 50 MG CAPSULE PO PRN (00:30)
--- NOTE | 2016-12-22 01:30 | NUR ---
ONE TIME ZYPREXA IM / BENADRYL RE-ASSESSMENT PATIENT IN BED ASLEEP. 1:1 SITTER IN ROOM. NO S/S OF DISTRESS. NO FACIAL GRIMACING . RESPIRATION EVEN AND UNLABORED. SAFETY MEASURES IN PLACE. CALL LIGHT IN REACH. WILL CONTINUE TO MONITOR
[2016-12-22 04:00] VITALS: BP 110/74
--- NOTE | 2016-12-22 07:10 | NUR ---
Start of shift note SBAR report rcv'd. Pt was admitted for opiate and benzo dependence. Pt has a PMH of anxiety, depression and chronic back pain. Pt has been noted to be having multiple hallucinations and pt received multiple PRN medications over the power shovel operator helper to manage her s/s. A UA is still needed at this time. 1:1 sitter notified and given UA cup. Pt is currently resting in bed. Pt has no complaints at this time. Will continue to monitor pt. All needs addressed at this time.
--- NOTE | 2016-12-22 07:26 | NUR ---
END OF SHIFT NOTE MONITORED PATIENT THROUGHOUT SHIFT. PATIENT CONTINUE ON 1:1 FOR SAFETY. PATIENT NOTED ANXIOUS, RESTLESS, TREMORS , NOTED WITH VISUAL AND AUDITORY HALLUCINATIONS DURING SHIFT. CONTINUE TO REDIRECT AND REALITY ORIENTATION PROVIDED . PATIENT WAS GIVEN PRN VISTARIL AND SEROQUEL AT [address] JARVIS WAS NOTIFIED AND MADE NEW ORDER TO INCREASED SEROQUEL TO 100 MG AND PRN SEROQUEL INCREASED TO 50 MG. PATIENT GIVEN SEROQUEL GIVEN BUT INEFFECTIVE. PATIENT NOTED MORE RESTLESS. INCREASING ANXIETY , PATIENT SCREAMING. DR. JARVIS WAS CONTACTED AND MADE NEW ORDER FOR ZYPREXA AND GIVEN AT [address] JARVIS WAS CONTACTED AGAIN NEW ORDER FOR ANOTHER ONE TIME ZYPREXA IM AND ONE TIME BENADRYL GIVEN AND EFFECTIVE. PATIENT SLEPT THE REST OF THE SHIFT , DR. JARVIS ORDERED TO TRANSFER PATIENT TODAY TO PSYCH UNIT. SAFETY MEASURES IN PLACE. CALL LIGHT IN REACH. WILL CONTINUE TO MONITOR AND 1:1. SLEPT 3 HOURS. FLUID INTAKE 520 ML. VOIDED X 0. NO BM. LAST COWS 2 AND CIWA 1 AT 4 AM .
[2016-12-22 08:00] VITALS: BP 100/56
[2016-12-22 08:18] LABS: *BILIRUBIN,URIN NEGATIVE (NEGATIVE); *BLOOD, URINE NEGATIVE (NEGATIVE); *CLARITY,URINE CLEAR (CLEAR); *COLOR,URINE YELLOW (YELLOW); *KETONES,URINE NEGATIVE (NEGATIVE); *PROTEIN,URINE NEGATIVE (NEGATIVE); *UROBILINOGEN,URINE 0.2 E.U./dl (NORMAL); LEUKOCYTE ESTERASE ,URINE NEGATIVE (NEGATIVE); NITRITE, URINE NEGATIVE (NEGATIVE); PH,URINE 6.5 (5.0-8.0); UGLUCOSE NEGATIVE (NEGATIVE)
--- NOTE | 2016-12-22 08:30 | NUR ---
COWS/CIWA deferred Pt is confused, unable to fully assess COWS/CIWA. Pt noted to have visual/auditory hallucinations, no tremors, flushing noted. Pt has no complaints of pain or nausea. No diarrhea noted. Will continue to monitor pt. 1:1 sitter at bedside.
--- NOTE | 2016-12-22 08:32 | NUR ---
MD communication Pt noted to be having continued hallucinations, pt is confused and unable to complete a full sentence. Pt has some levels of agitation. Dr Roberts and Dr Thomas notified. Dr Roberts ordered a crisis team evaluation. Andrei from crisis team called and notified. Will continue to monitor pt. Pt is currently resting in bed, 1:1 sitter at bedside.
[2016-12-22 08:37] LABS: BACTERIA,URINE MODERATE /HPF (NONE SEEN); RBC,URINE 0-3 /HPF (0-3); WBC,URINE 0-3 /HPF (0-3)
[2016-12-22 08:38] LABS: SQUAMOUS EPITHELIAL CELL,UR MANY /HPF (NONE SEEN)
--- NOTE | 2016-12-22 09:45 | NUR ---
Medications held at this time Pt is sleeping soundly, notified Dr Thomas, medications being held at this time, will continue to monitor pt and assess pt. All other needs addressed. Andrei from crisis team will arrive shortly to evaluate pt. 1:1 sitter at bedside, VS are stable.
[2016-12-22] MEDS: DICYCLOMINE HCL 20 MG TABLET PO SCH ×2 (10:43→14:50)
[2016-12-22] MEDS: DOCUSATE SODIUM 250 MG CAPSULE PO SCH (10:43)
[2016-12-22] MEDS: MULTIVITAMINS,THERAPEUTIC TABLET PO SCH (10:43)
[2016-12-22] MEDS: GABAPENTIN 300 MG CAPSULE PO SCH ×3 (10:43→20:35)
[2016-12-22] MEDS: FOLIC ACID 1 MG TABLET PO SCH (10:44)
[2016-12-22] MEDS: LORAZEPAM 1 MG TABLET PO SCH ×3 (10:44→20:34)
[2016-12-22] MEDS: CITALOPRAM 20 MG TABLET PO SCH (10:44)
[2016-12-22] MEDS: THIAMINE HCL 100 MG TABLET PO SCH (10:44)
--- NOTE | 2016-12-22 10:45 | NUR ---
Late administration Medications administered late d/t pt sleeping. Dr Thomas aware. Pt has a COWS of 2 and a CIWA of 10. Pt seen by crisis team, not determined to be able to be placed on a hold at this time. Pt to be further evaluated by Dr Roberts during rounds. All needs addressed at this time. Pt continues on 1:1. Pt denies hallucinations at this time.
[2016-12-22 10:55] LABS: BASOPHILS % (AUTO) 0.3 % (0.0-2.0); EOSINOPHILS # (AUTO) 0.1 K/uL (0.0-0.7); EOSINOPHILS % (AUTO) 0.9 % (0.0-7.0); HEMATOCRIT 37.9 % (37-47); LYMPHOCYTES # (AUTO) 2.4 K/UL (0.8-4.8); LYMPHOCYTES % (AUTO) 39.6 % (20.5-51.5); MEAN CORPUSCULAR HEMOGLOBIN 33.7 UUG (27.0-31.0); MEAN CORPUSCULAR HGB CONC 34 g/dL (32.0-37.0); MEAN CORPUSCULAR VOLUME 98.3 FL (81.0-99.0); MONOCYTES # (AUTO) 0.7 K/UL (0.1-1.30); MONOCYTES % (AUTO) 11.3 % (0.0-11.0); NEUTROPHILS # (AUTO) 2.9 K/UL (1.8-8.9); NEUTROPHILS % (AUTO) 47.9 % (38.5-71.5); PLATELET COUNT (AUTO) 166 K/UL (150-450); RED BLOOD CELL COUNT(AUTO) 3.85 MIL/UL (4.2-5.4); WHITE BLOOD COUNT (AUTO) 6.1 K/UL (4.0-11.2)
[2016-12-22 11:17] LABS: FOLIC ACID 16.4 NG/ML (8.6-58.9)
[2016-12-22 11:30] LABS: ALBUMIN 3.7 g/dL (3.4-5.0); BILIRUBIN,DIRECT 0.1 mg/dL (0.0-0.2); BILIRUBIN,TOTAL 0.6 mg/dL (0.2-1.0); CALCIUM 8.9 mg/dL (8.5-10.1); CREATININE 0.9 mg/dL (0.6-1.3); MAGNESIUM 2.2 mg/dL (1.8-2.4); PHOSPHOROUS 4.3 mg/dL (2.5-4.9); POTASSIUM 4.1 mmol/L (3.5-5.1); TOTAL PROTEIN, SERUM 7.1 g/dL (6.4-8.2)
[2016-12-22 12:00] VITALS: BP 92/47
--- NOTE | 2016-12-22 12:00 | NUR ---
COWS/CIWA deferred Pt is sleeping in bed, respirations are even and unlabored. COWS/CIWA deferred.
[2016-12-22] MEDS ORDERED: IV NS 1000 ML 1,000 ML IV ONE (13:15)
--- NOTE | 2016-12-22 13:30 | NUR ---
MD communication During routine VS, pt noted to have a temperature of 100.1. Dr Thomas was notified by charge nurse. Upon re-assessment, pt noted to have a temperature of 98.6. Pt has multiple blankets covering herself. Dr Thomas notified, ordered to cancel IVF, labs and x-ray. Orders cancelled per MD order. Pt states that she is comfortable at this time. 1:1 sitter at bedside.
--- NOTE | 2016-12-22 14:50 | NUR ---
communication/medications held Pt is sleeping soundly in her bed, respirations are even and unlabored. 1500 medications held, Dr Thomas aware. Will continue to monitor pt. 1:1 sitter at bedside.
[2016-12-22] MEDS ORDERED: DICYCLOMINE HCL 20 MG TABLET PO PRN (15:30)
[2016-12-22 16:00] VITALS: BP 94/55
[2016-12-22] MEDS: IBUPROFEN 600 MG TABLET PO PRN (17:24)
--- NOTE | 2016-12-22 17:24 | NUR ---
PRN administration Pt noted to have an increased level of confusion, pt repeats her questions several times over the course of several minutes, pt is hyperverbal, pt states that she does not remember anything that happened the night before. Pt states that she has generalized body aches of 3/10. Administered PRN seroquel and PRN motrin per MD order. 1:1 at bedside, pt offered food and fluids. Will continue to monitor pt. All needs addressed at this time.
--- NOTE | 2016-12-22 18:24 | NUR ---
Reassessment Pt states that her mind feels "clearer". Pt is AxOx3. Pt states that her pain level is 0. Seroquel and motrin were effective. Pt continues on a 1:1. Will continue to monitor pt.
--- NOTE | 2016-12-22 19:23 | NUR ---
End of shift note Pt was admitted for opiate and benzo dependence. Pt has a PMH of anxiety, depression and chronic back pain. Pt is on a 1:1 sitter d/t pt having hallucinations. Dr hTomas and Dr Roberts are aware. Pt slept well during the shift, pt states that she feels "more rested". 1500 medications were held d/t sedation. At this time, pt states that she is comfortable. Pt denies hallucinations. Pt continues on a 1:1 sitter, pt continues on extended ativan taper. Will endorse SBAR to oncoming shift, however pt noted to have intermittent periods of alertness, cage shift manager to continue to monitor pt. Pt ate 100% of breakfast and dinner, refused lunch, drank 1000ml of fluids during the shift, had 2 voids and no BM's during the shift.
--- NOTE | 2016-12-22 19:30 | NUR ---
START OF SHIFT NOTE : Patient is a 41 year female admitted for opiate and BZO dependence who was placed on a 5-day Ativan and 5-day Subutex taper as ordered. No adverse reactions noted. Has past medical hx of anxiety, depression and chronic back pain. FULL CODE. Regular diet. NKA. On fall and seizure precaution. Alert and oriented x 4. Verbally responsive. Able to make needs known. Respirations even and unlabored. No SOB noted. Skin warm and dry to touch. Abdomen soft and non-distended. Bowel sounds present in all 4 quadrants. No complains N/V/D or abdominal pain noted. No complains of diarrhea or constipation. Voids independently. Ambulatory ad wayne with steady gait. Voids independently No complains of dysuria. Pt. is 1:1 because of AMS, confirms audio and visual hallucinations today (lizards on the floor, talking to strangers other people not seen). Educated patient on her current plan of care and her medication regimen. Encouraged oral fluid intake and encouraged group participation to learn new skills to prevent relapse. All safety measures in place; side rails up x 2, bed locked and in low position, and call light with reach. Will continue to monitor closely and offer help.
[2016-12-22 20:00] VITALS: BP 104/69
[2016-12-22] MEDS: QUETIAPINE FUMARATE 100 MG TABLET PO SCH (20:40)
--- NOTE | 2016-12-22 23:00 | NUR ---
PRN ROBAXIN, VISTARIL Pt. complains of muscle spasm and increased level of anxiety.. PRN ROBAXIN, VISTARIL given as ordered. Safety measures in place : bed on lowest position with side rails x2 up for safety, call light within reach. Will continue to monitor closely and offer help.
--- NOTE | 2016-12-22 23:55 | NUR ---
REASSESSMENT SHITAL OGLESBY : Pt. is able to rest quietly, is ready to sleep, feels better. RR=16, unlabored and even. Safety measures in place : bed on lowest position with side rails x2 up for safety, call light within reach. Will continue to monitor closely and offer help.
[2016-12-22] MEDS: METHOCARBAMOL 750 MG TABLET PO PRN (23:57)
[2016-12-22] MEDS: HYDROXYZINE PAMOATE 25 MG CAPSULE PO PRN (23:57)
[2016-12-23 04:00] VITALS: BP 93/52
--- NOTE | 2016-12-23 06:50 | NUR ---
END OF SHIFT NOTE : Patient is a 41 year female admitted for opiate and BZO dependence who was placed on a 5-day Ativan and 5-day Subutex taper as ordered. No adverse reactions noted. Has past medical hx of anxiety, depression and chronic back pain. FULL CODE. Regular diet. NKA. On fall and seizure precaution. Alert and oriented x 4. Verbally responsive. Able to make needs known. Respirations even and unlabored. No SOB noted. Skin warm and dry to touch. Abdomen soft and non-distended. Bowel sounds present in all 4 quadrants. Voids independently. Ambulatory ad wayne with steady gait. Voids independently No complains of dysuria. Pt. is 1:1 because of AMS, confirms audio and visual hallucinations today (lizards on the floor, talking to strangers other people not seen). Educated patient on her current plan of care and her medication regimen. Encouraged oral fluid intake and encouraged group participation to learn new skills to prevent relapse. Pt remains compliant with the treatment plan. PRN ROBAXIN, VISTARIL given during my shift. V/S remain WNL. RR=16, even and unlabored, lungs clear upon auscultation, abdomen soft and non- distended. Pt denies nausea, vomiting and diarrhea. LAST CIWA=4 ,COWS=3 at 0400 , INTAKE= 855 ml, voided x 4, slept 6 hours. Safety measures in place : bed on lowest position with side rails x2 up for safety, call light within reach. Will continue to monitor closely and offer help.
--- NOTE | 2016-12-23 07:26 | NUR ---
Start of shift note SBAR report rcv'd from assistant shift supervisor nurse. Pt was admitted for opiate and benzo dependence. Pt is on an extended ativan taper d/t having hallucinations upon the completion of an ativan and subutex taper. Pt has a PMH of anxiety, depression and chronic back pain. Pt denies any hallucinations or feelings of discomfort or disorientation at this time. 1:1 sitter at bedside for safety. Pt is currently resting in bed. Pt has no complaints at this time. Will continue to monitor pt. All needs addressed at this time. Safety measures in place.
[2016-12-23 08:00] VITALS: BP 96/57
[2016-12-23] MEDS ORDERED: LORAZEPAM 1 MG TABLET PO SCH (09:00)
[2016-12-23] MEDS: CITALOPRAM 20 MG TABLET PO SCH (09:11)
[2016-12-23] MEDS: MULTIVITAMINS,THERAPEUTIC TABLET PO SCH (09:11)
[2016-12-23] MEDS: THIAMINE HCL 100 MG TABLET PO SCH (09:11)
[2016-12-23] MEDS: DOCUSATE SODIUM 250 MG CAPSULE PO SCH (09:11)
[2016-12-23] MEDS: FOLIC ACID 1 MG TABLET PO SCH (09:11)
[2016-12-23] MEDS: GABAPENTIN 300 MG CAPSULE PO SCH ×3 (09:11→20:47)
[2016-12-23 12:00] VITALS: BP 104/63
[2016-12-23] MEDS: METHOCARBAMOL 750 MG TABLET PO PRN (13:21)
--- NOTE | 2016-12-23 13:21 | NUR ---
PRN administration Pt c/o body aches and muscle spasms, pt unable to verbalize a number for her level of discomfort, states "I just have body aches, its not pain, but I'm uncomfortable". Administered robaxin PRN. Will continue to monitor pt.
--- NOTE | 2016-12-23 14:31 | NUR ---
Reassessment Pt states that her muscles spasms have decreased, but states that she still feels achy. Denies wanting any further medication at this time. Fluids and electrolyte drinks encouraged. Will continue to monitor pt.
[2016-12-23 15:19] LABS: *AMPHETAMINE, URINE NEGATIVE (NEGATIVE); *BARBITURATE, URINE NEGATIVE (NEGATIVE); *CANNABINOID, URINE NEGATIVE (NEGATIVE); *COCCAINE, URINE NEGATIVE (NEGATIVE); *OPIATE, URINE NEGATIVE (NEGATIVE); *PHENCYCLIDINE SCREEN,URINE NEGATIVE (NEGATIVE)
[2016-12-23 16:00] VITALS: BP 130/92
[2016-12-23] MEDS ORDERED: Docusate Sodium PO (17:47)
[2016-12-23] MEDS ORDERED: Ibuprofen PO (17:47)
[2016-12-23] MEDS ORDERED: HYDR-3895 PO (17:47)
[2016-12-23] MEDS ORDERED: QUET100T PO (17:47)
[2016-12-23] MEDS ORDERED: Gabapentin PO ×2 (17:47)
[2016-12-23] MEDS ORDERED: CITA20TA19 PO (17:47)
--- NOTE | 2016-12-23 18:47 | NUR ---
MD communication 1:1 d/c ok with Dr Roberts and Dr Thomas. Pt ixs AxOx4, pt educated to notify staff if she has any changes in mentality, has any hallucinations or severe anxiety. Pt verbalized her understanding.
--- NOTE | 2016-12-23 18:48 | NUR ---
End of shift note Pt was admitted for opiate and benzo dependence. Pt has a PMH of anxiety, depression and chronic back pain. Pt is compliant with the plan of care. Pt has been AxOx4 during the shift. At this time, pt states that she is comfortable. Pt denies hallucinations. Pt has completed her ativan taper, and states that she feels ready for discharge tomorrow. All needs addressed at this time. Will endorse SBAR to oncoming shift. Pt ate 50% of breakfast, 75% of lunch and dinner, drank 2355ml of fluids during the shift, had 5 voids and 1 BM during the shift. All needs addressed at this time. Will endorse SBAR to oncoming shift.
--- NOTE | 2016-12-23 19:53 | NUR ---
START OF SHIFT NOTE Pt is a 41 y/o female admitted for Oxycodone and Xanax dependence. Pt has NKA but reported a PMH of anxiety,depression, and chronic back pain (scoliosis and bulging disks.) Per day shift nurse pt was placed on a extended Ativan taper for 3 days (day 3) and is tolerating medication well with no s/e or a/r reported. Pt didn't receive any PRNS during the day shift. Per day shift nurse pt's 1:1 supervision was discontinued r/t improved behavior. Last COW: 3 and CIWA: 3 (1600). At this time pt is in her room lying down. Pt stated " I feel a lot better. I know I was being inappropriate." Pt denies any pain/discomfort, visual or auditory hallucinations at this time. Pt was encouraged to notify staff of any changes in conditions or of any concerns. Pt verbalized an understanding. All safety measures in place; side rails up x 2, bed locked and in low position, and call light within reach. Will continue to monitor.
[2016-12-23 20:00] VITALS: BP 115/79
[2016-12-23] MEDS: QUETIAPINE FUMARATE 100 MG TABLET PO SCH (20:47)
[2016-12-23] MEDS: IBUPROFEN 600 MG TABLET PO PRN (20:47)
--- NOTE | 2016-12-23 20:47 | NUR ---
MOTRIN PRN ADMINISTRATION Pt stated " My knee is hurting. Like a 01/17. Can I have something?" Motrin 600 mg PO PRN was given.Pt was encouraged to notify staff of any changes in condition or of any concerns. Pt verbalized an understanding. All safety measures in place. Will monitor for effectiveness.
--- NOTE | 2016-12-23 21:47 | NUR ---
[facility] PRN REASSESSMENT Pt stated " My knee feels better. It's less than a 2/10." PRN effective. Will continue to monitor.
--- NOTE | 2016-12-24 | NUR ---
COW, CIWA, AND VITALS REFUSED Pt refused to be assessed and have vitals taken at this time. Pt was encouraged x 3 with risks and benefits explained, but the pt still declined. All safety measures in place. Will continue to monitor. Addendum: 12/24/16 at 0647 by DEBRA HELM LVN Amended: Links added.
--- NOTE | 2016-12-24 04:00 | NUR ---
COW, CIWA, AND VITALS REFUSED Pt refused to be assessed and have vitals taken at this time. Pt was encouraged x 3 with risks and benefits explained, but the pt still declined. All safety measures in place. Will continue to monitor. Addendum: 12/24/16 at 0650 by DEBRA HELM LVN Amended: Links added.
--- NOTE | 2016-12-24 07:20 | NUR ---
END OF SHIFT NOTE Pt is a 41 y/o female admitted for Oxycodone and Xanax dependence. Pt has NKA but reported a PMH of anxiety,depression, and chronic back pain (scoliosis and bulging disks.) Pt was placed on a extended Ativan taper and is tolerating medication well with no s/e or a/r reported. Pt received Motrin 600 mg PO PRN during the shift. Pt had no episodes of hallucinations during the shift. Last COW: 3 and CIWA: 2 (1999). Pt slept for a total of 7 hours. All safety measures in place; side rails up x 2, bed locked and in low position, and call light within reach. Endorsed to the oncoming nurse.
[2016-12-24 08:00] VITALS: BP 143/69
[2016-12-24] MEDS: CITALOPRAM 20 MG TABLET PO SCH (08:15)
[2016-12-24] MEDS: THIAMINE HCL 100 MG TABLET PO SCH (08:15)
[2016-12-24] MEDS: DOCUSATE SODIUM 250 MG CAPSULE PO SCH (08:16)
[2016-12-24] MEDS: MULTIVITAMINS,THERAPEUTIC TABLET PO SCH (08:16)
[2016-12-24] MEDS: GABAPENTIN 300 MG CAPSULE PO SCH (08:16)
[2016-12-24] MEDS: FOLIC ACID 1 MG TABLET PO SCH (08:17)
--- NOTE | 2016-12-24 10:00 | NUR ---
START OF SHIFT Received report from night club manager nurse. Patient is 41 year old female admitted for medically supervised withdrawal from oxycodoNE and xanax. Patient is full code, with NKA. On assessment this AM: CIWA: 2 and COWS: 3. Patient reports mild tremors and anxiety. Med compliant. Patient fly and SOB and chest pain at this time. Patient noted packing in preparation for her discharge. Reviewed discahrge paperwork with patient. Will continue to monitor patient.
--- NOTE | 2016-12-24 10:05 | NUR ---
D/C NOTES Pt is A/O x4. V/S remain WNL. Pt denies SI/HI or hallucinations. Pt shows no s/s of acute withdrawal at this time, and is stable. MD has medically cleared pt for d/c . Education on Hepatitis C, smoking cessation and medication side effects provided. Pt verbalizes understanding. All pt belongings are in belonging bag, including prescriptions, including any home medications. Refuses PNU vaccination. Pt is being accompanied by T[employer] TR[employer] ENGINE MECHANIC at this time to be transported to rehab. All needs met.
== END 2016-12-24 10:05 | disposition other institution (70) | DRG 895 ==
LOC: SRC 08:10
PROVIDERS: ADMIT Internal Medicine; ATTEND Internal Medicine
PROC: HZ2ZZZZ Detoxification Services for Substance Abuse Treatment (ICD-10-PCS; principal; 2016-12-15)
PROC: HZ31ZZZ Individual Counseling for Substance Abuse Treatment, Behavioral (ICD-10-PCS; 2016-12-16)
PROC: HZ41ZZZ Group Counseling for Substance Abuse Treatment, Behavioral (ICD-10-PCS; 2016-12-16)
DX: F11.23 Opioid dependence with withdrawal (principal); F33.3 Major depressive disorder, recurrent, severe with psychotic symptoms; F13.231 Sedative, hypnotic or anxiolytic dependence with withdrawal delirium; F10.120 Alcohol abuse with intoxication, uncomplicated; Y90.9 Presence of alcohol in blood, level not specified; F41.9 Anxiety disorder, unspecified; Z82.5 Family history of asthma and other chronic lower respiratory diseases; Z82.49 Family history of ischemic heart disease and other diseases of the circulatory system; F17.210 Nicotine dependence, cigarettes, uncomplicated; G47.00 Insomnia, unspecified; Z81.1 Family history of alcohol abuse and dependence; K70.10 Alcoholic hepatitis without ascites; K59.03 Drug induced constipation; R73.9 Hyperglycemia, unspecified; G89.29 Other chronic pain; M54.5 Low back pain
CPT/HCPCS: 36415; 70030-TC; 80307; 80346; 82746; 83690; 83735; 84100; 84443; 84703; 85025; 86580; 86592; 86705; 86803; 87340; 87806; 93005; G6040-TC; J2358; J3411; Q0162; Q0163